=== PATIENT | female | born 1970 | race Caucasian/White ===

== ENCOUNTER 2019-08-02 08:57 | Emergency (ER) | payer BC ==
[~2019-08-02] VITALS: Ht 160 cm; Wt 136.1 kg
[~2019-08-02 08:57] MED LIST: KEFLEX500 MG PO
[2019-08-02] MEDS ORDERED: NORCO 5-325 TA1 EACH PO (10:25)
== END 2019-08-02 11:09 | disposition home or self-care (01) ==
LOC: ED 08:57
DX: M23.91 Unspecified internal derangement of right knee (principal); F17.200 Nicotine dependence, unspecified, uncomplicated
CPT/HCPCS: 73560; 99283; 99406

== ENCOUNTER 2019-08-28 08:00 | Day surgery (SDC) | payer BC ==
[~2019-08-28] VITALS: Ht 160 cm; Wt 98.9 kg
[~2019-08-28 08:00] MED LIST changes: +NORCO 5-325 TA1 EACH PO
--- NOTE | 2019-08-28 10:19 | NUR ---
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
--- NOTE | 2019-08-28 11:36 | NUR ---
08/28/19 1136 Justina Gallo 1106 PT ARRIVED IN PACU NON RESPONSIVE TO VERBAL/TACTILE STIMULI WITH OPA IN PLACE. 1111 PT REACTIVE. OPA REMOVED. 1114 C/O R KNEE PAIN 6/10. OFIRMEV 1GM GIVEN IVP. OXYGEN REMOVED. SATS 97% ON RA. 1125 TAKING SIPS OF WATER. NO CHANGE IN PAIN LEVEL. 1132 PAIN INCREASED TO 7/10. FENTANYL 50MCG GIVEN IVP. ICE TO R KNEE.
--- NOTE | 2019-08-28 14:25 | NUR ---
CHECKED IN ON PATIENT. PATIENT RESTING COMFORTABLY. PATIENT UP TO URINATE. PATIENT VOIDED 900ML. CURRENTLY AWAITNG PHYSICIAN MEDICATION ORDERS TO DISCHARGE. WOUND CARE INFORMATION HAS BEEN DISCUSSED. PATIENT HAD NO OTHER QUESTIONS OR CONCERNS AT THIS TIME.
--- NOTE | 2019-08-28 15:07 | NUR ---
PATIENT WAS ESCORTED OUT TO [employer]ERSON[employer]HICLE. PATIENT AMBULATED WELL FROM BED TO WHEELCHAIR AND FROM WHEELCHAIR TO PRIVATE AUTO. PATIENT STATED SHE HAD NO QUESTIONS OR COMPLAINTS AT THIS TIME
--- NOTE | 2019-08-29 07:53 | OR ---
[facility] [address], [place] [address] Signed DATE OF OPERATION: 08/28/2019 SURGEON: Afshan Rasmussen MD PREOPERATIVE DIAGNOSES: 1. Locked bucket-handle tear, medial meniscus, right knee. 2. Anterior cruciate ligament tear, right knee. POSTOPERATIVE DIAGNOSES: 1. Locked bucket-handle tear, medial meniscus, right knee. 2. Anterior cruciate ligament tear, right knee. PROCEDURE PERFORMED: Right knee arthroscopy with partial medial meniscectomy. ASSISTANTS: 1. Natacha Wiley PA-C. 2. JAMES Harry. Natacha was present and critical for all portions of procedure. ANESTHESIA: General. BLOOD LOSS: Minimal. BRIEF HISTORY: Phoebe is a 48-year-old female with history of a fall and injury to her knee. MRI was consistent with ACL tear and locked bucket-handle meniscus tear. Risks and benefits of operative treatment were discussed with the patient. Due to her rather sedentary life, she wished to avoid ACL reconstruction, which she has had on the other side and see if she can get by with just the removal of the meniscus that was torn. Once consent was obtained, she was taken to the operating room. After adequate anesthesia, she was placed on operating table. Left leg was flexed, abducted, and externally rotated in well-padded leg guerrero. The right was placed in well-padded proximal thigh tourniquet placed in leg guerrero. Portal sites were pre-injected using 0.25% Marcaine with epinephrine under alcohol prep. The leg was then prepped and draped in a standard sterile fashion. Standard inferolateral and superolateral portals were made and the scope was introduced. Electronically Signed By: AFSHAN RASMUSSEN MD 08/29/19 0753 PATIENT NAME: PHOEBE CUMMINGS OPERATIVE REPORT DATE OF : 70 REPORT #: [id number] PHYSICIAN: AFSHAN RASMUSSEN MD PCP: NO PRIMARY CARE PHYSICIAN REPORT IS CONFIDENTIAL AND NOT TO BE RELEASED WITHOUT AUTHORIZATION [facility] [address], [place] [address] Signed ARTHROSCOPIC FINDINGS: Significant synovitis was noted throughout the knee. The patella was noted to track well with no significant chondromalacia. Medial and lateral gutters were clear. ACL was noted to be torn and fragmented with only some remnants of the posterolateral bundle. The PCL was intact. There was a large bucket-handle tear locked into the notch. Lateral compartment was intact. 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 DESCRIPTION OF OPERATION: Standard inferomedial portal was made after localization using a spinal needle. The curved and straight biters were then used to trim the bucket-handle tear back and this was removed using a large shaver. The remaining meniscus did show multiple tears and these tears were trimmed back using the curved and straight biters. All debris was evacuated and meniscus was removed using the shaver. The chondromalacia was feathered out as well. Once all debris was evacuated, the scope was withdrawn. Portals were closed with 3-0 nylon, dressed with Adaptic, ABD, and Pipo wrap. The knee was injected with 60 mg Toradol at the end of the procedure. She tolerated the procedure well. All sponge, needle, and instrument counts were correct. Afshan Rasmussen MD BA/MODL /[id number] Copies: ~ Electronically Signed By: AFSHAN RASMUSSEN MD 08/29/19 0753 PATIENT NAME: PHOEBE CUMMINGS OPERATIVE REPORT DATE OF : 70 REPORT #: [id number] PHYSICIAN: AFSHAN RASMUSSEN MD PCP: NO PRIMARY CARE PHYSICIAN REPORT IS CONFIDENTIAL AND NOT TO BE RELEASED WITHOUT AUTHORIZATION
== END 2019-08-28 15:00 | disposition home or self-care (01) ==
LOC: DS 08:00 → OPS 08:00 → DS 09:45 → OPS 10:30
PROVIDERS: Specialist
PROC: 0SBC4ZZ Excision of Right Knee Joint, Percutaneous Endoscopic Approach (ICD-10-PCS; principal; 2019-08-28 10:30)
DX: S83.211A Bucket-handle tear of medial meniscus, current injury, right knee, initial encounter (principal); S83.511A Sprain of anterior cruciate ligament of right knee, initial encounter; M65.9 Synovitis and tenosynovitis, unspecified; M94.261 Chondromalacia, right knee; I10 Essential (primary) hypertension; G43.909 Migraine, unspecified, not intractable, without status migrainosus; E66.9 Obesity, unspecified; R12 Heartburn; Z68.38 Body mass index [BMI] 38.0-38.9, adult; X58.XXXA Exposure to other specified factors, initial encounter
CPT/HCPCS: J0131; J0690; J1100; J1885; J2405; J2704; J3010; J7120